=== PATIENT | male | born 1950 | race Caucasian/White ===

== ENCOUNTER 2018-09-05 19:34 | Emergency (ER) | payer MEDICARE, OTHER ==
[2018-09-05] MEDS ORDERED: Ketorolac Tromethamine 60 MG/2 ML VIAL ONE (20:25)
[2018-09-05] MEDS ORDERED: HYDROmorphone 0.5 MG/0.5 ML SYRINGE ONE (20:25)
[2018-09-05] MEDS ORDERED: predniSONE 20 MG TAB ONE (20:25)
== END 2018-09-05 21:20 | disposition home or self-care (01) ==
LOC: MADERS 19:34
DX: M54.5 Low back pain (principal); I10 Essential (primary) hypertension; Z79.899 Other long term (current) drug therapy; X50.1XXA Overexertion from prolonged static or awkward postures, initial encounter
CPT/HCPCS: 96372; J1170; J1885; J7512

== ENCOUNTER 2019-06-12 10:13 | Emergency (ER) | payer MEDICARE, OTHER ==
[2019-06-12] MEDS ORDERED: Ketorolac Tromethamine 30 MG/ML VIAL ONE (10:47)
== END 2019-06-12 11:20 | disposition home or self-care (01) ==
LOC: MADERS 10:13
DX: M54.5 Low back pain (principal); E03.9 Hypothyroidism, unspecified; I10 Essential (primary) hypertension; X50.1XXA Overexertion from prolonged static or awkward postures, initial encounter; Z79.899 Other long term (current) drug therapy
CPT/HCPCS: 96372; 99283; J1885

== ENCOUNTER 2019-08-17 10:41 | Emergency (ER) | payer MEDICARE, OTHER ==
[2019-08-17] MEDS ORDERED: Tetracaine 0.5% OPHTH SOLN/PF 4 ML BOT ONE (11:08)
[2019-08-17] MEDS ORDERED: Fluorescein Opthalmic Strip ONE (11:09)
== END 2019-08-17 11:26 | disposition home or self-care (01) ==
LOC: MADERS 10:41
DX: T15.02XA Foreign body in cornea, left eye, initial encounter (principal); I10 Essential (primary) hypertension; E03.9 Hypothyroidism, unspecified; Z79.899 Other long term (current) drug therapy; W45.8XXA Other foreign body or object entering through skin, initial encounter
CPT/HCPCS: 99283

== ENCOUNTER 2020-02-02 07:22 | Emergency (ER) | payer MEDICARE, OTHER ==
[2020-02-02] MEDS ORDERED: Dexamethasone 10 MG/ML VIAL ONE (07:44)
[2020-02-02] MEDS ORDERED: Sodium Chloride 0.9% 1,000 ML ONE (07:44)
[2020-02-02 07:55] LABS: #Basophils 0.1 thou/uL (0.0-0.2); #Eosinphils 0.2 thou/uL (0.0-0.7); #Lymphocytes 1.6 thou/uL (1.20-3.40); #Monocytes 0.7 thou/uL (0.11-0.59); %Basophils 0.8 % (0.0-1.0); %Eosinophils 1.7 % (0.0-10.0); %Monocytes 6.2 % (0.0-10.0); %Neutrophils 76.3 % (42.0-75.0); Hemoglobin 16.6 g/dL (14.0-18.0); Mean Corpuscular Hemoglobin 29.3 pg (27.0-31.0); Mean Corpuscular Volume 88.7 fL (78.0-98.0); Mean Platelet Volume 7.6 fL (7.4-10.4); Platelet Count 190 thou/uL (130-400); RBC Distribution Width 12.3 % (11.5-14.5); Red Blood Cell (RBC) Count 5.66 mill/uL (4.70-6.10); White Blood Cell (WBC) Count 10.5 thou/uL (4.8-10.8)
[2020-02-02 08:02] LABS: Anion Gap 18 mmol/L (10-20); BUN (Urea Nitrogen) 30 mg/dL (8.4-25.7); Calc. Creatinine Clearance 0 mL/min (70-130); Calcium 9.2 mg/dL (7.8-10.44); Carbon Dioxide 25 mmol/L (23-31); Chloride 104 mmol/L (98-107); Estimated GFR-MDRD 40; Glucose 112 mg/dL (80-115); Sodium 143 mmol/L (136-145)
[2020-02-02] MEDS ORDERED: diphenhydrAMINE 50 MG/ML VIAL ONE (08:26)
--- NOTE | 2020-02-02 11:49 | CT ---
CT OF NECK PERFORMED WITH INTRAVENOUS CONTRAST ENHANCEMENT: HISTORY: Neck pain. The patient is complaining of a sore throat. FINDINGS: The lung apices are clear. The thyroid gland is normal in size. There is no significant jugular steven in adenopathy. The parotid and submandibular glands appear unremarkable. Parapharyngeal spaces are clear and tonsil lar regions appear unremarkable. Epiglottis is normal in appearance. Visualized sinuses are clear. IMPRESSION: Unremarkable CT of the neck. POS: OFF
[2020-02-02] MEDS ORDERED: Iopamidol 370 76% 100 ML VIAL ONE (12:20)
== END 2020-02-02 10:20 | disposition home or self-care (01) ==
LOC: MADERS 07:22
DX: T78.3XXA Angioneurotic edema, initial encounter (principal); E78.5 Hyperlipidemia, unspecified; E78.00 Pure hypercholesterolemia, unspecified; I10 Essential (primary) hypertension; E03.9 Hypothyroidism, unspecified; Z79.899 Other long term (current) drug therapy
CPT/HCPCS: 70491; 80048; 85025; 87081; 87430; 96374; 96375; J1100; J1200; J7050; Q9967

== ENCOUNTER 2022-09-04 14:45 | Emergency (ER) | payer MEDICARE, OTHER ==
[2022-09-04] MEDS ORDERED: Dexamethasone 10 MG/ML VIAL ONE (15:09)
[2022-09-04] MEDS ORDERED: Lidocaine 4% Patch ONE (15:09)
[2022-09-04] MEDS ORDERED: Orphenadrine Citrate 60 MG/2 ML VIAL ONE (15:09)
[2022-09-04] MEDS ORDERED: Acetaminophen 500 MG TAB ONE (15:09)
[2022-09-04] MEDS ORDERED: Morphine 2 MG/ML VIAL ONE (15:48)
[2022-09-04] MEDS ORDERED: Morphine 4 MG/ML VIAL ONE (15:48)
[2022-09-04] MEDS ORDERED: Lidocaine 1% w/Epinephrine 1:100K 20 ML VIAL ONE (16:14)
[2022-09-04] MEDS ORDERED: Bupivacaine HCl 0.5%/Epinephrine 1:200,000/PF 30 ml Vial ONE (16:14)
== END 2022-09-04 16:40 | disposition home or self-care (01) ==
LOC: MADERS 14:45
DX: M54.50 Low back pain, unspecified (principal); E78.00 Pure hypercholesterolemia, unspecified; E03.9 Hypothyroidism, unspecified; I10 Essential (primary) hypertension; Z79.899 Other long term (current) drug therapy
CPT/HCPCS: 20552; 96372; J1100; J2270; J2272; J2360

== ENCOUNTER 2022-12-18 08:58 | Emergency (ER) | payer MEDICARE, OTHER ==
[2022-12-18] MEDS ORDERED: Lidocaine 4% Patch ONE (09:33)
[2022-12-18] MEDS ORDERED: Lidocaine 1% w/Epinephrine 1:100K 20 ML VIAL ONE (09:33)
[2022-12-18] MEDS ORDERED: Bupivacaine HCl 0.5%/Epinephrine 1:200,000/PF 30 ml Vial ONE (09:33)
[2022-12-18] MEDS ORDERED: Dexamethasone 10 MG/ML VIAL ONE (09:33)
== END 2022-12-18 10:12 | disposition home or self-care (01) ==
LOC: MADERS 08:58
DX: M54.42 Lumbago with sciatica, left side (principal); I10 Essential (primary) hypertension; E03.9 Hypothyroidism, unspecified; E78.00 Pure hypercholesterolemia, unspecified; Z79.899 Other long term (current) drug therapy
CPT/HCPCS: 20552; 96372; J1100

== ENCOUNTER 2023-01-02 10:18 | Emergency (ER) | payer MEDICARE, OTHER ==
[2023-01-02] MEDS ORDERED: Lidocaine 1% w/Epinephrine 1:100K 20 ML VIAL ONE (10:44)
[2023-01-02] MEDS ORDERED: Bupivacaine PF 0.5% 30 ML VIAL ONE (10:44)
[2023-01-02] MEDS ORDERED: Dexamethasone 10 MG/ML VIAL ONE (10:59)
== END 2023-01-02 11:05 | disposition home or self-care (01) ==
LOC: MADERS 10:18
DX: M54.32 Sciatica, left side (principal); E78.00 Pure hypercholesterolemia, unspecified; I10 Essential (primary) hypertension; E03.9 Hypothyroidism, unspecified; Z79.899 Other long term (current) drug therapy
CPT/HCPCS: 20552; 96372; J1100; S0020